=== PATIENT | female | born 1995 | race Two or more races ===

== ENCOUNTER 2017-04-05 12:13 | Emergency (ER) | payer MEDICAID ==
[~2017-04-05] VITALS: Ht 167.6 cm; Wt 68.0 kg
--- NOTE | 2017-04-05 12:20 | NUR ---
BIB [facility] FOR SUICIDAL IDEATION S/P POSSIBLE INGESTION OF RAINX. PLACED ON MONITOR. AWAITING MD ORDER
[2017-04-05] MEDS ORDERED: LORAZEPAM INJ 2 MG/ML VIAL IV ONE (13:00)
[2017-04-05] MEDS ORDERED: LORAZEPAM INJ 2 MG/ML VIAL ONE (13:01)
[2017-04-05 13:09] LABS: BASOPHILS % (AUTO) 0.4 % (0.0-2.0); EOSINOPHILS % (AUTO) 0.4 % (0.0-6.0); HEMATOCRIT 37 % (33-45); HEMOGLOBIN 12.1 g/dL (11.5-14.8); LYMPHOCYTES # (AUTO) 1.5 /CMM (0.8-4.8); LYMPHOCYTES % (AUTO) 13.9 % (20.0-44.0); MEAN CORPUSCULAR HEMOGLOBIN 29 PG (26.0-33.0); MEAN CORPUSCULAR HGB CONC 33 g/dl (31.0-36.0); MEAN CORPUSCULAR VOLUME 89 fL (82-100); MONOCYTES # (AUTO) 0.6 /CMM (0.1-1.30); MONOCYTES % (AUTO) 6.1 % (2.0-12.0); NEUTROPHILS # (AUTO) 8.5 /CMM (1.8-8.9); NEUTROPHILS % (AUTO) 79.2 % (43.0-81.0); PLATELET COUNT (AUTO) 282 /CMM (150-450); RED BLOOD CELL COUNT(AUTO) 4.13 MIL/uL (4.0-5.2); WHITE BLOOD COUNT (AUTO) 10.6 K/uL (4.3-11.0)
--- NOTE | 2017-04-05 13:15 | NUR ---
LINE STARTED ON L AC G 18, BLOOD DRAWN FROM LINE AND SENT TO LAB
[2017-04-05 13:16] LABS: CALCIUM, SERUM 8.3 mg/dL (8.5-10.1); CREATININE 0.8 mg/dL (0.6-1.3); POTASSIUM 3.2 mmol/L (3.5-5.1)
--- NOTE | 2017-04-05 13:20 | NUR ---
REMOVED RESTRAINTS PT CALM WAS GIVEN ATIVAN
[2017-04-05 13:23] LABS: ALBUMIN 4.1 g/dL (3.4-5.0); BILIRUBIN,DIRECT 0.1 mg/dL (0.0-0.2); BILIRUBIN,TOTAL 0.3 mg/dL (0.2-1.0); SALICYLATE 2.8 mg/dL (2.8-20.0); TOTAL PROTEIN, SERUM 7.9 g/dL (6.4-8.2)
[2017-04-05] MEDS ORDERED: IV NS 0.9% 1,000 ML BAG IV ONE ×3 (13:30→16:00)
[2017-04-05] MEDS ORDERED: POTASSIUM CL. PREMIX PERIPHER. 100 ML ONE (14:11)
[2017-04-05] MEDS: POTASSIUM CL. PREMIX PERIPHER. 50 ML IV SCH ×2 (14:18→15:30)
[2017-04-05 14:32] LABS: APPEARANCE,URINE Slightly Cloudy (CLEAR); BILIRUBIN,URINE Negative (NEGATIVE); BLOOD, URINE Trace-lysed Ery/uL (NEGATIVE); COLOR,URINE Yellow (YELLOW); KETONES,URINE Negative (NEGATIVE); LEUKOCYTE ESTERASE ,URINE Negative (NEGATIVE); NITRITE, URINE Negative (NEGATIVE); PROTEIN,URINE 30 mg/dl (NEGATIVE); UGLUCOSE Negative (NEGATIVE); UROBILINOGEN,URINE 0.2 EU/dL (0.2)
[2017-04-05 14:34] LABS: PREGNANCY TEST URINE QUAL NEGATIVE (NEGATIVE)
[2017-04-05 14:40] LABS: BACTERIA,URINE Few /HPF (None Seen); RBC,URINE 0-3 /HPF (0-2); SQUAMOUS EPITHELIAL CELL,UR Few /HPF (None Seen); URINE AMORPHOUS PHOSPHATES Few /HPF (None Seen)
[2017-04-05 15:16] LABS: CALCIUM, SERUM 7.4 mg/dL (8.5-10.1); CREATININE 0.8 mg/dL (0.6-1.3); POTASSIUM 3.6 mmol/L (3.5-5.1)
[2017-04-05 15:22] LABS: ALBUMIN 3.6 g/dL (3.4-5.0); BILIRUBIN,TOTAL 0.3 mg/dL (0.2-1.0); TOTAL PROTEIN, SERUM 6.9 g/dL (6.4-8.2)
--- NOTE | 2017-04-05 15:51 | NUR ---
CALLED [facility] REPAIRER FOR EVAL
[2017-04-05] MEDS ORDERED: ACETAMINOPHEN ES 500 MG TABLET ONE (16:16)
[2017-04-05] MEDS ORDERED: ONDANSETRON 4 MG TAB.RAPDIS ONE (16:16)
[2017-04-05] MEDS ORDERED: ONDANSETRON 4 MG TAB.RAPDIS PO ONE (16:30)
[2017-04-05] MEDS ORDERED: ACETAMINOPHEN 325 MG TABLET PO ONE (16:30)
--- NOTE | 2017-04-05 16:54 | NUR ---
ART SW AT BEDSIDE FOR PSYCH EVAL
--- NOTE | 2017-04-05 19:18 | NUR ---
PTS MOM ON HER WAY 30 MINS ETA
--- NOTE | 2017-04-05 20:09 | NUR ---
PT MOTHER AT BEDSIDE. PT OK TO BE DISCHARGED. IV removed. Catheter intact and site benign. Pressure and 4x4 applied to site. No bleeding noted.Patient discharged to home in stable condition. Written and verbal after care instructions given. Patient verbalizes understanding of instruction.Patient is awake and alert to self, day, and place. PT ambulatory with a steady gait
[2017-04-05 20:10] VITALS: BP 115/72
== END 2017-04-05 20:11 | disposition home or self-care (01) ==
LOC: ER 12:15
DX: T65.892A Toxic effect of other specified substances, intentional self-harm, initial encounter (principal); R45.851 Suicidal ideations; Y92.89 Other specified places as the place of occurrence of the external cause
CPT/HCPCS: 36415; 80048-TC; 80053-TC; 80076-TC; 80305; 81000-TC; 83935-TC; 84703-TC; 85025-TC; 87086-TC; 87186-TC; A4606; G0480; J2060; J3480; J7030; Q0162; Z7610